=== PATIENT | female | born 1975 | race Caucasian/White ===

== ENCOUNTER 2016-11-02 10:58 | Emergency (ER) | payer SELFPAY ==
[~2016-11-02] VITALS: Wt 54.5 kg
[2016-11-02] MEDS ORDERED: ACETAMINOPHEN 500 MG TAB PO STA (11:51)
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
--- NOTE | 2016-11-02 12:26 | RADRPT ---
PROCEDURE: US Abdomen CLINICAL INDICATION: abdominal pain TECHNIQUE: Multiple real-time images were acquired of the patient's abdomen utilizing a high resol ution transducer. COMPARISON: None FINDINGS: No free fluid is identified. RPTAT: AA IMPRESSION: No free fluid is identified. .Sampson Jackson MD, Date Time Electronically viewed and signed by .Sampson Jackson MD, on 11/02/2016 12:26 .S/
--- NOTE | 2016-11-02 13:20 | RADRPT ---
PROCEDURE: Right hand series CLINICAL INDICATION: Right hand pain after trauma TECHNIQUE: Three views of the right hand were obtained. COMPARISON: No prior studies are available for comparison. FINDINGS: There is normal mineralization and alignment of the bones of the right hand. There is no evidence o f acute fracture or dislocation. Joint spaces are well maintained. There is no evidence of osteoph yte formation or erosions. The soft tissues are within normal limits. IMPRESSION: 1. Unremarkable right hand series. RPTAT: KK .Rocky Posey MD, Date Time Electronically viewed and signed by .Rocky Posey MD, MD on 11/02/2016 13:20 .B/
--- NOTE | 2016-11-02 13:22 | RADRPT ---
PROCEDURE: Right ankle series. CLINICAL INDICATION: Right ankle pain after trauma TECHNIQUE: Three views of the right ankle are available for review COMPARISON: None available FINDINGS: There is normal mineralization and alignment of the bones of the right ankle. There is a subtle cor tical disruption in the medial malleolus, likely representing artifact. There is no definite fractu re dislocation. Joint spaces are well maintained. No osteophytes or erosions are identified. No michael int effusion is identified. There is moderate diffuse soft tissue swelling. IMPRESSION: 1. Subtle cortical disruption in the medial malleolus, which may be artifactual in nature. Recomme nd correlation with point tenderness and consider CT if clinically indicated. 2. Moderate soft tissue swelling without definitive evidence of fracture or dislocation. RPTAT: KK .Rocky Posey MD, Date Time Electronically viewed and signed by .Rocky Posey MD, MD on 11/02/2016 13:22 .B/
[2016-11-02] MEDS ORDERED: IBUP-1542 PO (14:11)
== END 2016-11-02 15:30 | disposition home or self-care (01) ==
LOC: FTE 10:58
DX: S39.93XA Unspecified injury of pelvis, initial encounter (principal); S69.91XA Unspecified injury of right wrist, hand and finger(s), initial encounter; S99.911A Unspecified injury of right ankle, initial encounter; S39.91XA Unspecified injury of abdomen, initial encounter; R10.2 Pelvic and perineal pain; V49.40XA Driver injured in collision with unspecified motor vehicles in traffic accident, initial encounter
CPT/HCPCS: 76705